=== PATIENT | female | born 1980 | race Caucasian/White ===

== ENCOUNTER 2019-11-01 00:20 | Outpatient (CLI) | payer OTHER, SELFPAY ==
[2019-11-01 18:39] LABS: SARS-CoV-2 RNA PCR Negative
== END 2019-11-01 00:21 | disposition home or self-care (01) ==
LOC: ANHCOVIDDT 00:21
PROVIDERS: PCP Family Medicine; Visit Provider Internal Medicine Gastroenterology
DX: Z01.818 Encounter for other preprocedural examination (principal); Z11.59 Encounter for screening for other viral diseases
CPT/HCPCS: 87635; C9803; U0003

== ENCOUNTER 2019-11-03 00:48 | Day surgery (SDC) | payer OTHER, SELFPAY ==
[2019-10-27 14:35] VITALS: BMI 27.5
[2019-11-03 07:43] VITALS: BP 121/90; PULSE 113; RESP 18; TEMP 36.4; O2SAT 100
[2019-11-03] MEDS: LACTATED RINGERS 1,000 ML 150 ML IV CONT (07:46)
--- NOTE | 2019-11-03 08:14 | WPDANESEPPF ---
Anes - Initial Pre Proc Eval Procedure: Operation Date: 11/03/19 08:30 Proposed Procedures p Colonoscopy - Jovanny Valadez DO Date/Time: 11/03/19 08:14 Surgeon: Jovanny Valadez DO Pre Op Diagnosis: ulcerative colitis w rectal bleeding Patient Data Age: 39 Gender: F Height: 5 ft 5 in Weight: 73.1 kg Last Vital Signs Temp 97.6 F 11/03/19 07:43 Pulse 113 H 11/03/19 07:43 Resp 18 11/03/19 07:43 BP 121/90 11/03/19 07:43 Pulse Ox 100 11/03/19 07:43 Allergies Allergy/AdvReac Type Severity Reaction Status Date / Time No Known Allergies Allergy Verified 11/03/19 07:42 Home Medications Medication Instructions Recorded Confirmed Type calcium carbonate [Calcium 500] 500 mg PO DAILY 10/27/19 11/03/19 History folic acid 1 mg PO DAILY 10/27/19 11/03/19 History mesalamine [Pentasa] 500 mg PO QID 10/27/19 11/03/19 History fbjrjxpv-qyjc-XF-calcium-mins 1 tablet PO DAILY 10/27/19 11/03/19 History [Women's Daily Caplet] Patient hx anesthesia problems: none Family hx anesthesia problems: none PMFSH Social History Social History (Reviewed 08/01/19 @ 16:53 by Miladys Leyva [facility]) Smoking status: Never smoker Second hand tobacco smoke exposure: No Alcohol intake: current Anes - Eval Final PreProcedure Day of Procedure 11/03/19 08:14 Patient weight: normal Heart: regular rate and rhythm Lungs: clear to auscultation Airway: Mallampati scale class II Neurological: alert and oriented Last oral intake: >/= 8 hours ASA classification: II Emergent: no Anesthetic plan: proceed Anesthesia type and monitoring: general GIVS and standard monitoring Informed Consent: The patient's anesthetic plan and its attendant risks and benefits were discussed with the patient/family/POA. Questions were solicited and answers provided to the satisfaction of the patient/family/POA.
--- NOTE | 2019-11-03 08:56 | P.HP_ITS ---
H&P: HPI History of Present Illness Chief complaint: ulcerative colitis w rectal bleeding Narrative: Reason for visit colonoscopy. Impression: Ulcerative colitis. The patient recently had episode of diarrhea. Will evaluate for line active disease. Recommendation: Colonoscopy. History: This very pleasant lady Has a known history of ulcerative colitis and had episodes of diarrhea recently. We increased her Pentasa and the patient was given mesalamine suppositories. Her symptoms have improved. She is here for colonoscopy to assess for lying active disease. Fourteen point review systems negative. General: very pleasant patient in no acute distress. HEENT: Head was normocephalic sclerae is clear mouth without masses neck was supple. Heart: Rate rhythm regular without S3 or S4. Lungs: CTA. Abdomen: Soft with no guarding or rigidity. Bowel sounds were active. Neurologic: Cranial nerves 2 through 12 intact. No focal defects. No clonus. Musculoskeletal system: Revealed no joint tenderness or swelling no muscle atrophy. Extremities: Reveal no significant edema. Skin: Warm and dry with normal turgor. Mental status: intact. Patient is alert and oriented. [facility] Social History Social History Smoking status: Never smoker Second hand tobacco smoke exposure: No Alcohol intake: current Meds Home Medications and Allergies Home Medications Medication Instructions Recorded Confirmed Type calcium carbonate [Calcium 500] 500 mg PO DAILY 10/27/19 11/03/19 History folic acid 1 mg PO DAILY 10/27/19 11/03/19 History mesalamine [Pentasa] 500 mg PO QID 10/27/19 11/03/19 History eoaarkro-vudr-HR-calcium-mins 1 tablet PO DAILY 10/27/19 11/03/19 History [Women's Daily Caplet] Allergies Allergy/AdvReac Type Severity Reaction Status Date / Time No Known Allergies Allergy Verified 11/03/19 07:42 Vital Signs Vital Signs - 24 hr 11/03/19 07:43 Temperature 36.4 C Pulse Rate 113 H Respiratory Rate 18 Blood Pressure 121/90 Pulse Oximetry 100
[2019-11-03] MEDS: METHYLENE BLUE 0.5% INJ 10 ML AMPULE 20 ML IRRIGATION (09:17)
[2019-11-03 09:30] VITALS: BP 96/60; PULSE 100; RESP 22; O2SAT 98
[2019-11-03 09:40] VITALS: BP 103/62; PULSE 100; RESP 20; O2SAT 96
[2019-11-03 09:50] VITALS: BP 108/61; PULSE 61; RESP 20; O2SAT 100
== END 2019-11-03 10:04 | disposition home or self-care (01) ==
PROVIDERS: PCP Family Medicine; Visit Provider Internal Medicine Gastroenterology
PROC: 0DJD8ZZ Inspection of Lower Intestinal Tract, Via Natural or Artificial Opening Endoscopic (ICD-10-PCS; CPT 45378; principal; 2019-11-03 08:30)
DX: K51.90 Ulcerative colitis, unspecified, without complications (principal); K64.8 Other hemorrhoids
CPT/HCPCS: 45380; 88305; J2704; J7120; Q9968

== ENCOUNTER 2020-12-12 10:05 | Outpatient (CLI) | payer OTHER, SELFPAY ==
--- NOTE | ~2020-12-12 | MM_ITS ---
EXAMINATION: MM screening zuleyka BI w vijay HISTORY: Screening mammogram TECHNIQUE: Craniocaudal and mediolateral oblique 3-D tomosynthesis images were obtained and synthetic 2-D images were generated. CAD analysis was submitted and interpreted. COMPARISON: None, baseline BREAST PARENCHYMAL COMPOSITION: There are scattered areas of fibroglandular density. FINDINGS: There is no evidence of suspicious mass, calcification, or architectural distortion to sugg est malignancy in either breast. IMPRESSION: 1. No mammographic evidence of malignancy. 2. Recommend routine screening mammography in one year. BI-RADS Category 1: Negative Reviewed, dictated and finalized at location A.
== END 2020-12-12 10:06 | disposition home or self-care (01) ==
LOC: ANHIMG 10:08
PROVIDERS: PCP Family Medicine; Visit Provider Obstetrics & Gynecology
DX: Z12.31 Encounter for screening mammogram for malignant neoplasm of breast (principal)
CPT/HCPCS: 77063; 77067

== ENCOUNTER 2023-11-27 14:29 | Outpatient (CLI) | payer OTHER, SELFPAY ==
--- NOTE | ~2023-11-27 | MM_ITS ---
EXAMINATION: MM screening zuleyka BI w vijay HISTORY: Screening mammogram TECHNIQUE: Craniocaudal and mediolateral oblique 3-D tomosynthesis images were obtained and synthetic 2-D images were generated. CAD analysis was submitted and interpreted. COMPARISON: 12/12/2020 BREAST PARENCHYMAL COMPOSITION:Not Dense. There are scattered areas of fibroglandular density. FINDINGS: No suspicious mass, calcification, or architectural distortion are identified in either analy ast to suggest malignancy. There has been no suspicious interval change. IMPRESSION: No mammographic evidence of malignancy. Recommend routine screening mammography in one year. BI-RADS Category 1: Negative Reviewed, dictated and finalized at location .
== END 2023-11-27 14:30 | disposition home or self-care (01) ==
LOC: ANHIMG 14:31
PROVIDERS: PCP Family Medicine; Visit Provider Obstetrics & Gynecology
DX: Z12.31 Encounter for screening mammogram for malignant neoplasm of breast (principal)
CPT/HCPCS: 77063; 77067

== ENCOUNTER 2024-12-28 15:01 | Outpatient (CLI) | payer OTHER, SELFPAY ==
--- NOTE | ~2024-12-28 | MM_ITS ---
EXAMINATION: MM screening zuleyka BI w vijay HISTORY: Screening TECHNIQUE: Craniocaudal and mediolateral oblique 3-D tomosynthesis images were obtained and synthetic 2-D images were generated. CAD analysis was submitted and interpreted. COMPARISON: Comparison to multiple prior studies sequentially, with oldest reviewed study dated 10/2015. BREAST PARENCHYMAL COMPOSITION: Not dense: There are scattered areas of fibroglandular density. FINDINGS: There is no evidence of suspicious mass, calcification, or architectural distortion to sugg est malignancy in either breast. There has been no suspicious interval change. IMPRESSION: 1. No mammographic evidence of malignancy. 2. Recommend routine screening mammography in one year. BI-RADS Category 1: Negative Reviewed, dictated and finalized at location B.
--- OUTSIDE RECORDS SUMMARY | 2024-12-28 15:06 | XMS_ITS | Clinical Summary ---
Author Organization [address] - [address]22 [address] [facility] 3[address] [place] [address] Phone Care Team Providers Care Machine Ii Engraver Name Role Phone Shahzad Brown MD Primary Care Provider [phone] Social History Tobacco Use Types Packs/Day Years Used Date Smoking Tobacco: Never Assessed Comments Unknown Sex and Gender Information Value Date Recorded Sex Assigned at Not on file Legal Sex Female 9:02 AM CDT Gender Identity Not on file Sexual Orientation Not on file Last Filed Vital Signs Vital Sign Reading Time Taken Comments Blood Pressure 123/80 12/27/2013 1:45 PM CDT Pulse 110 12/27/2013 1:45 PM CDT Temperature - - Respiratory Rate - - Oxygen Saturation - - Inhaled Oxygen Concentration - - Weight 78.1 kg (172 lb 3.2 oz) 12/27/2013 1:45 P M CDT Height - - Body Mass Index - - Plan of Treatment Health Maintenance Due Date Last Done Comments HPV VACCINES (1 - 3-dose series) 09/19/1995 DTAP/TDAP/TD VACCINES (1 - Tdap) 09/19/1999 HEPATITIS B VACCINES (1 of 3 - 19+ 3-dose series) 08/31 HPV/Cotest (21-29) 2001 CERVICAL CANCER SCREENING 2010 HPV/Cotest (30-65) 2010 PAP SMEAR 2010 BREAST CANCER SCREENING 2020 INFLUENZA VACCINE (#1) 2024 [place] [address] [facility] [id number] Care Teams Machine Ii Engraver Relationship Specialty Start Date End Date Shahzad Brown MD PCP - General 05/18/15
--- OUTSIDE RECORDS SUMMARY | 2024-12-28 15:06 | XMS_ITS | Clinical Summary ---
Author Organization [facility] Address [address] [place] [address] Phone Care Team Providers Care Care Mgr Name Role Phone Jovanny Valadez DO Unavailable [phone] Ivonne Mendoza MD Primary Care Provider [phone] Margot Olivarez APRN, CNP Unavailable Allergies No known active allergies Medications calcium carbonate-vitami n D 600-400 MG-UNIT Tablet Take 2 Tabs by mouth daily. Active Multiple Vitamins-Calcium (ONE-A-DAY WOMENS PO) Take by mouth. Active folic acid (FOLVITE) 1 MG Tablet Take 1 Tablet by mouth daily. 90 Tablet 5 Active Mesalamine (Pentasa) 500 MG Capsule CRIndications:Ul cerative colitis without complications, unspecified location (HCC),High risk medication use TAKE 2 CAPSULES BY MOUTH THREE TIMES DAILY 540 Capsule 5 Active Active Problems Problem Noted Date Diagnosed Date Ulcerative colitis 05/03/2015 Encounters Date Type Department Care Team Description 11/22/2024 2:30 PM CDT Office Visit [facility] - Gastroenterology - [place] [address] [place] [address] Margot Olivarez APRN, CNP Ulcerative colitis without complications, unspecified location (HCC) (Primary Dx); High risk medication use Discharge Disposition: Discharged to home or Selfcare 11/22/2024 Travel 11/07/2024 Refill [facility] - Gastroenterology [facility] [address] [place] [address] Margot Olivarez APRN, KIKE Medication Refill from Last 3 Months Immunizations Immunization Administration Dates Next Due Influenza Vaccine greater than 3 yrs 03/25/2017, 05/15/2015 Family History Medical History Relation Name Comments Heart Disease Mother Relation Name Status Comments Mother Social History Tobacco Use Types Packs/Day Years Used Date Smoking Tobacco: Never Smokeless Tobacco: Never Tobacco Cessation:Counseling Given: No Alcohol Use Standard Drinks/Week Comments Yes 0 (1 standard drink = 0.6 oz pur e alcohol) Occasionally Sexually Active Control Partners Comments Yes Comments No Sex and Gender Information Value Date Recorded Sex Assigned at Not on file Legal Sex Female 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 ACCOUNTANT Gender Identity Not on file Sexual Orientation Not on file Occupation Industry Job Start Date Job End Date teacher Not on file Not on file Not on file Last Filed Vital Signs Vital Sign Reading Time Taken Comments Blood Pressure 120/66 11/22/2024 2:31 PM CDT Pulse 71 11/22/2024 2:31 PM CDT Temperature 37 C (98.6 F) 11/22/2024 2:31 PM CDT Respiratory Rate 16 11/22/2024 2:31 PM CDT Oxygen Saturation 100% 11/22/2024 2:31 PM CDT Inhaled Oxygen Concentration - - Weight 75.7 kg (166 lb 12.8 oz) 11/22/2024 2:31 PM CDT Height 162.6 cm (5' 4) 11/22/2024 2:31 PM CDT Body Mass Index 28.63 11/22/2024 2:31 PM CDT Plan of Treatment Health Maintenance Due Date Last Done Comments Mammogram 1980 Human Papillomavirus (HPV) Immunization (1 - 3-dose series) 09/19/1995 Pap Smear 2001 Cervical Cancer Screening (CCS) 2010 HPV/Cotest 2010 Hepatitis B Immunization (2 of 3 - 19+ 3-dose series) 08/02/2015 07/05/2015 Discussion re Starting/Frequency of Mammograms 2020 SARS-COV-2 Immunization ( - season) 2024 08/13/2020 Colonoscopy 12/24/2024 12/24/2022, 08/2019, 11/05/2017, Additional history exists Colorectal Cancer Screening 12/24/2024 Influenza Immunization (#1) 01/30/202501/2022, 03/25/2017, 04/09/2016, Additional history exists Respiratory Syncytial Virus (RSV) Immunization (Adult) (1 - 1-dose 75+ series) 09/19/2055 DTaP/Tdap/Td Immunization Discontinued 07/24/2016, 03/2014 TdaP Immunization Completed 07/24/2016, 03/10/2014 Hepatitis C Virus (HCV) Screening Completed 10/13/2019, 07/07/2017 Meningococcal Immunization (ACWY) Aged Out No longer eligible based on patient's age to complete this topic Pneumococcal Immunization Combined Aged Out No longer eligible based on patient's age to complete this topic Rotavirus Immunization Aged Out No lo nger eligible based on patient's age to complete this topic Procedures Procedure Name Priority Date/Time Associated Diagnosis Comments COLONOSCOPY Routine 11/03/2019 HEPATITIS PANEL ACUTE (AHP) Routine 10/13/2019 Ulcerative colitis with rectal bleeding, unspecified location (HCC) High risk medication use from Last 3 Months or Most Recently Relevant to Health Maintenance Results * COLONOSCOPY (11/03/2019) us Jovanny T Factor 14cornelia DO PROCEDURE/MINOR SURGICAL ORDERA BLES Final Result * HEPATITIS PANEL ACUTE (AHP) (10/13/2019) Blood specimen (specimen) us Jovanny T Klucka DO HEMATOLOGY ORDERABLES Final Res ult from Last 3 Months or Most Recently Relevant to Health [place] [address] [facility] Care Teams Care Mgr Relationship Specialty Start Date End Date Ivonne Mendoza MD [address] [place] [address] PCP - General Family Medicine 11/04/21 Jovanny Valadez DO Gastroenterology 07/05/15 Margot Olivarez APRN, DIRECTOR OF BUSINESS SYSTEMS [address] [place] [address] Nurse Practitioner Advanced Practice Nurse 11/07/22
--- OUTSIDE RECORDS SUMMARY | 2024-12-28 15:06 | XMS_ITS | Encounter Summary ---
Author Organization [facility] Address [address] [facility] [place] [address] Phone Care Team Providers Care Studio Control Operator Name Role Phone Shahzad Brown MD Primary Care Provider [phone] Jovanny Valadez DO Unavailable [phone] Ivonne Mendoza MD Primary Care Provider [phone] Margot Olivarez APRN, UNIVERSAL BANKER Unavailable Reason for Visit * Reason Comments Medication Refill Encounter Details Date Type Department Care Team (Late st Contact Info) Description 05/18/2020 [facility]ill [facility] [address] [place] [id number] Mustapha Anabel Lanny, PAC [address] [place] [address] Medication Refill Social History Tobacco Use Types Packs/Day Years Used Date Smoking Tobacco: Never Smokeless Tobacco: Never Alcohol Use Standard Drinks/Week Comments Yes 0 (1 standard drink = 0.6 oz pur e alcohol) Occasionally Sexually Active Control Partners Comments Yes Comments No Sex and Gender Information Value Date Recorded Sex Assigned at Not on file Legal Sex Female 4:05 PM MANAGER RISK Gender Identity Not on file Sexual Orientation Not on file Occupation Industry Job Start Date Job End Date teacher Not on file Not on file Not on file documented as of this encounter Miscellaneous Notes * Telephone Encounter - Efrain Farias CMA - 05/18/2020 1:29 PM MANAGER RISK Pharmacy requesting refill of: Requested Prescriptions Pending Prescriptions Disp Refills ??? Pentasa 500 MG Capsule CR [Pharmacy Med Name: PENTASA 500MG CAPSULES] 240 Cap 1 Sig: TAKE 2 CAPSULES BY MOUTH FOUR TIMES DAILY Last fill: 04/20/2020 Patients last OV with GI: 04/06/2020 Next Office Visit with GI: Recall for 1 year follow up in April 2021 GER RISK documented in this encounter Plan of Treatment Not on file documented as of this encounter Visit Diagnoses Not on filedocumented in this encounter Care Teams Studio Control Operator Relationship Specialty Start Date End Date Shahzad Brown MD PCP - General Internal Medicine 05/03/15 11/03/21 Ivonne Mendoza MD [address] [place] [address] PCP - General Family Medicine 11/04/21 Jovanny Valadez DO Gastroenterology 07/05/15 Margot Olivarez APRN, UNIVERSAL BANKER [address] [place] [address] Nurse Practitioner Advanced Practice Nurse 11/07/22 documented as of this encounter
--- OUTSIDE RECORDS SUMMARY | 2024-12-28 15:06 | XMS_ITS | Encounter Summary ---
Author Organization [facility] Address [address] [place] [address] Phone Care Team Providers Care Scallop Cutter Machine Name Role Phone Jovanny Valadez DO Unavailable [phone] Ivonne Mendoza MD Primary Care Provider [phone] Margot Olivarez APRN, DOCUMENT CONTROL SUPERVISOR Unavailable Reason for Visit * Reason Comments Medication Refill Encounter Details Date Type Department Care Team (Late st Contact Info) Description 11/10/2023 Refill [facility] - Gastroenterology - [place] [address] [place] [address] Margot Olivarez APRN, DOCUMENT CONTROL SUPERVISOR [address] [place] [address] Medication Refill Social History Tobacco Use Types Packs/Day Years Used Date Smoking Tobacco: Never Smokeless Tobacco: Never Alcohol Use Standard Drinks/Week Comments Yes 0 (1 standard drink = 0.6 oz pur e alcohol) Occasionally Sexually Active Control Partners Comments Yes Comments No Sex and Gender Information Value Date Recorded Sex Assigned at Not on file Legal Sex Female 4: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 documented in this encounter Plan of Treatment Not on file documented as of this encounter Visit Diagnoses Not on filedocumented in this encounter Care Teams Scallop Cutter Machine Relationship Specialty Start Date End Date Ivonne Mendoza MD [address] [place] [address] PCP - General Family Medicine 11/04/21 Jovanny Valadez DO Gastroenterology 07/05/15 Margot Olivarez APRN, DOCUMENT CONTROL SUPERVISOR [address] [place] [address] Nurse Practitioner Advanced Practice Nurse 11/07/22 documented as of this encounter
--- OUTSIDE RECORDS SUMMARY | 2024-12-28 15:07 | XMS_ITS | Encounter Summary ---
Author Organization [facility] Address [address] [facility] [place] [address] Phone Care Team Providers Care Limerock Tower Loader Name Role Phone Shahzad Brown MD Primary Care Provider [phone] Jovanny Valadez DO Unavailable [phone] Ivonne Mendoza MD Primary Care Provider [phone] Margot Olivarez APRN, PULLBOAT ENGINEER Unavailable Reason for Visit * Reason Comments Medication Refill Encounter Details Date Type Department Care Team (Late st Contact Info) Description 01/14/2021 Refill [facility] [address] [place] [id number] Mustapha Anabel Lanny, PAC [address] [place] [address] Medication Refill Social History Tobacco Use Types Packs/Day Years Used Date Smoking Tobacco: Never Smokeless Tobacco: Never Alcohol Use Standard Drinks/Week Comments Yes 0 (1 standard drink = 0.6 oz pur e alcohol) Occasionally Sexually Active Control Partners Comments Yes Comments No Sex and Gender Information Value Date Recorded Sex Assigned at Not on file Legal Sex Female 4:05 PM HEALTH AND SAFETY TECHNICIAN Gender Identity Not on file Sexual Orientation Not on file 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 Pentasa 500 MG Capsule CR [Pharmacy Med Name: PENTASA 500MG CAPSULES] 240 Capsule 5 Sig: TAKE 2 CAPSULES BY MOUTH FOUR TIMES DAILY Last fill: 05/18/2020 Patients last OV with GI: 04/06/2020 Next Office Visit with GI: 04/23/2021 for 1 year follow up UC. Order pended for pentasa, please review. documented in this encounter Plan of Treatment Not on file documented as of this encounter Visit Diagnoses Not on filedocumented in this encounter Care Teams Limerock Tower Loader Relationship Specialty Start Date End Date Shahzad Brown MD PCP - General Internal Medicine 05/03/15 11/03/21 Ivonne Mendoza MD [address] [place] [address] PCP - General Family Medicine 11/04/21 Jovanny Valadez DO Gastroenterology 07/05/15 Margot Olivarez APRN, PULLBOAT ENGINEER [address] [place] [address] Nurse Practitioner Advanced Practice Nurse 11/07/22 documented as of this encounter
== END 2024-12-28 15:02 | disposition home or self-care (01) ==
LOC: ANHIMG 15:03
PROVIDERS: PCP Family Medicine; Visit Provider Obstetrics & Gynecology
DX: Z12.31 Encounter for screening mammogram for malignant neoplasm of breast (principal)
CPT/HCPCS: 77063; 77067